=== PATIENT | male | born 2000 | race Caucasian/White ===

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

== ENCOUNTER 2022-11-24 11:24 | Emergency (ER) | payer BC, SELFPAY ==
--- NOTE | 2022-11-24 11:29 | ED.URI ---
HPI - URI/Sore Throat General Chief Complaint: Upper Respiratory Infection Stated Complaint: Sinus/Throat/Cough Time Seen by Provider: 11/24/22 11:29 Source: patient Mode of arrival: ambulatory Limitations: no limitations History of Present Illness HPI Narrative: Bernardino is a 22-year-old male patient presenting to the clinic today with complaints of sinus congestion, sore throat, chest congestion, and cough x1 day. He reports no known fever, chills, or body aches. No known exposure removal COVID, flu, or strep. States that his sister has recently been sick and he thinks that he may have gotten this illness from his sister. MD elicited complaint: cough, sore throat, nasal congestion and other (Chest congestion) Related Data Home Medications Medication Instructions Recorded Confirmed ascorbic acid (vitamin C) 100 mg 100 mg PO DAILY 06/01/21 12/19/21 tablet famotidine 20 mg tablet 20 mg PO DAILY 06/01/21 12/19/21 iron-vitamin B complex tablet 1 tablet PO DAILY 06/01/21 12/19/21 Allergies Allergy/AdvReac Type Severity Reaction Status Date / Time No Known Allergies Allergy Verified 12/19/21 14:48 Review of Systems Review of Systems: Pertinent positives per HPI. Patient denies any fever, chills, rash, headache, visual changes, dizziness, shortness of breath, chest pain, palpitations, nausea, vomiting, diarrhea, constipation, abdominal pain, or any urinary issues. [facility] Past Medical History Medical History BMI 29.0-29.9,adult Family History Family History Father Asthma History of kidney cancer Mother Cancer Sibling No problems noted. Social History Social History Second hand tobacco smoke exposure: No Alcohol intake: current Substance use: never Substance use type: does not use Living arrangements: with family Occupation/Education: student Additional occupation/education comments: [employer] Gender identity (if verbalized by the patient): Male Comments At the time of my signature, I reviewed and agree with the nursing past medical, surgical, social, and family history. There is no relevant family history pertinent to the patient complaint. Exam Narrative: General: Well-developed, well nourished, in no apparent distress Head: Normocephalic, atraumatic Eyes: Pupils equally round and reactive to light bilaterally, EOM intact, sclera and conjunctive clear, no discharge, lids normal Ears: TMs intact and clear, ear canals clear, no drainage, grossly hearing normal. Nose: Nares patent, clear nasal discharge, no inflammation, no sinus tenderness. Mouth: Oral pharynx without lesions or masses, good dentition, MMM. Postnasal drip, oropharynx red Neck: Supple, trachea midline, no enlargement of anterior or posterior cervical nodes, no thyroid masses or goiter palpable. Cardio: Regular rate and rhythm, s1 and s2 normal, no murmur appreciated. Resp: Clear to auscultation bilaterally, no rhonchi, rales, wheezing or rubs Course Course Emergency Course: Portions of this record may have been created with voice recognition software. Level of Care: Express Care Visit Vital Signs Vital signs: Vital Signs Temperature 36.7 C 11/24/22 11:34 Pulse Rate 71 11/24/22 11:34 Respiratory Rate 16 11/24/22 11:34 Blood Pressure 119/84 11/24/22 11:34 Pulse Oximetry 98 11/24/22 11:34 Oxygen Delivery Room Air 11/24/22 11:34 Temperature 36.7 C 11/24/22 11:34 Pulse Rate 71 11/24/22 11:34 Respiratory Rate 16 11/24/22 11:34 Blood Pressure 119/84 11/24/22 11:34 Pulse Oximetry 98 11/24/22 11:34 Oxygen Delivery Room Air 11/24/22 11:34 Vital signs reviewed MDM - URI/Sore Throat MDM Narrative Medical decision making narrative: At the time of visit patient is resti
[2022-11-24 11:34] VITALS: BP 119/84; PULSE 71; RESP 16; TEMP 36.7; O2SAT 98
[2022-11-24 11:58] VITALS: BP 119/84; PULSE 71; RESP 16; TEMP 36.7; O2SAT 98
== END 2022-11-24 12:01 | disposition home or self-care (01) ==
PROVIDERS: Emergency Provider Nurse Practitioner Family; PCP Family Medicine
DX: J06.9 Acute upper respiratory infection, unspecified (principal); J02.9 Acute pharyngitis, unspecified; Z20.822 Contact with and (suspected) exposure to COVID-19; K21.9 Gastro-esophageal reflux disease without esophagitis
CPT/HCPCS: 87081; 87426; 87880; 99213; C9803; G0463